=== PATIENT | male | born 1990 | race Caucasian/White ===

== ENCOUNTER → 2022-05-12 | Outpatient (CLI) | payer SELFPAY ==
[2022-05-16 10:09] LABS: QNTFERON TB Mitogen Value > 10.00 IU/mL (.); QNTFERON TB Nil Value 0.05 IU/mL (.); QNTFERON TB2+ Ag Value 0.17 IU/mL (.)
[2022-05-19 14:32] LABS: QNTIFERON TB Positive Criteria Negative (Negative)
== END | disposition home or self-care (01) ==
LOC: MTLAB 13:20
PROVIDERS: Referring Provider Dermatology; Visit Provider Dermatology
DX: L40.0 Psoriasis vulgaris (principal); Z79.899 Other long term (current) drug therapy
CPT/HCPCS: 36415; 86480

== ENCOUNTER → 2023-07-11 | Outpatient (CLI) | payer BC, SELFPAY ==
[2023-07-15 22:07] LABS: Alternaria tenuis <0.10 kU/L (Class 0); Ash, White <0.10 kU/L (Class 0); Aspergillus fumigatus <0.10 kU/L (Class 0); Beef <0.10 kU/L (Class 0); Bermuda Grass <0.10 kU/L (Class 0); Birch <0.10 kU/L (Class 0); Black Walnut <0.10 kU/L (Class 0); Cat Hair / Dander,Stand <0.10 kU/L (Class 0); Cedar, Mountain <0.10 kU/L (Class 0); Chocolate <0.10 kU/L (Class 0); Cockroach, American 0.23 kU/L (Class 0/I); Codfish <0.10 kU/L (Class 0); Corn <0.10 kU/L (Class 0); Cottonwood <0.10 kU/L (Class 0); D farinae Mite 0.18 kU/L (Class 0/I); D pteronyssinus 0.14 kU/L (Class 0/I); Dog Epithelia <0.10 kU/L (Class 0); Egg, Whole <0.10 kU/L (Class 0); Elm, American White <0.10 kU/L (Class 0); Immunoglobulin E 26 IU/mL (6-495); Maple/Box Elder <0.10 kU/L (Class 0); Milk (Cow) 1.93 kU/L (Class III); Mouse Urine <0.10 kU/L (Class 0); Mulberry, White <0.10 kU/L (Class 0); Oak, White <0.10 kU/L (Class 0); Peanut <0.10 kU/L (Class 0); Pecan <0.10 kU/L (Class 0); Penicillium Notatum <0.10 kU/L (Class 0); Pigweed, Rough <0.10 kU/L (Class 0); Pork <0.10 kU/L (Class 0); Ragweed, Short/Common <0.10 kU/L (Class 0); Russian Thistle <0.10 kU/L (Class 0); Salmon <0.10 kU/L (Class 0); Sheep Sorrel <0.10 kU/L (Class 0); Shrimp 0.51 kU/L (Class I); Soybean <0.10 kU/L (Class 0); Sycamore, American <0.10 kU/L (Class 0); Timothy Grass <0.10 kU/L (Class 0); Tuna <0.10 kU/L (Class 0); Wheat <0.10 kU/L (Class 0)
== END | disposition home or self-care (01) ==
LOC: MFPLAB 14:47
PROVIDERS: PCP Family Medicine; Visit Provider Family Medicine
DX: Z91.013 Allergy to seafood (principal)
CPT/HCPCS: 36415; 82785; 86003; 86005

== ENCOUNTER → 2023-11-14 | Outpatient (CLI) | payer BC, SELFPAY ==
[2023-11-16 12:09] LABS: QNTFERON TB Mitogen Value > 10.00 IU/mL (.); QNTFERON TB Nil Value 0.04 IU/mL (.); QNTFERON TB1+ Ag Value 0.33 IU/mL (.); QNTFERON TB2+ Ag Value 0.18 IU/mL (.); QNTIFERON TB Positive Criteria Negative (Negative)
== END | disposition home or self-care (01) ==
LOC: MTLAB 11:39
PROVIDERS: PCP Family Medicine; Referring Provider Physician Assistant Medical; Visit Provider Physician Assistant Medical
DX: L40.0 Psoriasis vulgaris (principal); Z79.899 Other long term (current) drug therapy
CPT/HCPCS: 36415; 86480

== ENCOUNTER → 2025-01-14 | Outpatient (CLI) | payer BC, SELFPAY | END | disposition home or self-care (01) | LOC: MTLAB 16:16 | PROVIDERS: PCP Family Medicine; Referring Provider Physician Assistant; Visit Provider Physician Assistant | DX: L40.0 Psoriasis vulgaris (principal) | CPT/HCPCS: 36415; 86480 ==

== ENCOUNTER → 2025-01-23 | Outpatient (CLI) | payer BC, SELFPAY ==
[2025-01-27 11:08] LABS: QNTFERON TB Mitogen Value > 10.00 IU/mL (.); QNTFERON TB Nil Value 0.06 IU/mL (.); QNTFERON TB1+ Ag Value 0.21 IU/mL (.); QNTFERON TB2+ Ag Value 0.15 IU/mL (.); QNTIFERON TB Positive Criteria Negative (Negative)
== END | disposition home or self-care (01) ==
LOC: MTLAB 13:48
PROVIDERS: PCP Family Medicine; Referring Provider Physician Assistant; Visit Provider Physician Assistant
DX: Z79.899 Other long term (current) drug therapy (principal)
CPT/HCPCS: 36415; 86480